=== PATIENT | male | born 1980 | race African-American/Black ===

== ENCOUNTER 2019-06-03 20:23 | Emergency (ER) | payer SELFPAY ==
[2019-06-03 21:05] LABS: Calcium 9.6 mg/dL (7.8-10.44); Chloride 110 mmol/L (98-107); Potassium 4.5 mmol/L (3.5-5.1); Sodium 139 mmol/L (136-145)
[2019-06-03 21:18] LABS: BUN (Urea Nitrogen) 12 mg/dL (8.9-20.6); Calc. Creatinine Clearance 0 mL/min (70-130); Carbon Dioxide 20 mmol/L (22-29); Estimated GFR-MDRD Greater than 90; Glucose 94 mg/dL (70-105)
[2019-06-03 21:27] LABS: Anion Gap 14 mmol/L (10-20)
--- NOTE | 2019-06-03 21:52 | CT ---
FACIAL BONE CT SCAN WITH IV CONTRAST: History: Left sided facial swelling and pain which has been intermittently going on for several weeks. FINDINGS: Post contrast CT examination of the face is performed. There is some sinus mucosal disease including the frontal, ethmoid, maxillary and sphenoid sinuses, evidence for chronic ibarra sinusitis. There is so me superficial subcutaneous fat stranding on the left side of the face and check with some associated swelling. There is some minimal thickening of the underlying fascia. There is some minimal fat stran ding deep to the fascia. Some of this fat stranding overlies the left parotid gland which is somewhat heterogeneous raising the possibility of left parotid gland sialadenitis. The left submaxillary glan d appears unremarkable. There are some scattered up to borderline sized bilateral jugular chain lymph nodes. No evidence for osseous abnormality. The deep parapharyngeal region appears normal. The deep retromandibular region is unremarkable. IMPRESSION: Some abnormal swelling and fat stranding involving the subcutaneous tissue as well as some thickening of the underlying fascia and some minimal edematous changes deep to the underlying fascia, and part overlying the region of the left parotid gland raising concern for associated parotid gland sialadeni tis or inflammation. No evidence for dilatation of Melani's duct. Chronic ibarra sinusitis with sinus m ucosal changes. No evidence for associated fracture or bony abnormality. POS: [facility]
== END 2019-06-03 21:47 | disposition home or self-care (01) ==
LOC: SCSER 20:23
DX: K11.20 Sialoadenitis, unspecified (principal)
CPT/HCPCS: 70487; 80048

== ENCOUNTER 2019-12-31 08:16 | Outpatient (CLI) | payer OTHER ==
--- NOTE | 2019-12-31 09:12 | RAD ---
EXAM: CHEST TWO VIEWS 12/31/2019 9:09 AM HISTORY: Hypertension COMPARISON: March 24, 2019 FINDINGS: Lungs: No acute airspace consolidation. Heart: There is stable mild cardiomegaly. Pulmonary Vessels: Normal. Costophrenic Angles: Clear. Pneumothorax: None. Osseous Structures: Intact. Additional Findings: None. IMPRESSION: Stable mild cardiomegaly. No acute abnormality demonstrated.
[2019-12-31 10:34] LABS: #Basophils 0.1 thou/uL (0.0-0.2); #Eosinphils 0.3 thou/uL (0.0-0.7); #Lymphocytes 2.5 thou/uL (1.20-3.40); #Monocytes 0.4 thou/uL (0.11-0.59); #Neutrophils 2.4 thou/uL (1.40-6.50); %Basophils 0.9 % (0.0-1.0); %Eosinophils 5.9 % (0.0-10.0); %Lymphocytes 44.4 % (21.0-51.0); %Monocytes 6.6 % (0.0-10.0); %Neutrophils 42.1 % (42.0-75.0); Hemoglobin 14.9 g/dL (14.0-18.0); Mean Corpuscular HGB CONC 31.8 g/dL (32.0-36.0); Mean Corpuscular Hemoglobin 25.6 pg (27.0-31.0); Mean Corpuscular Volume 80.4 fL (78.0-98.0); Mean Platelet Volume 8.3 fL (7.4-10.4); Platelet Count 314 thou/uL (130-400); RBC Distribution Width 13.7 % (11.5-14.5); White Blood Cell (WBC) Count 5.6 thou/uL (4.8-10.8)
[2019-12-31 11:01] LABS: ALT (SGPT) 21 U/L (8-55); AST (SGOT) 17 U/L (5-34); Albumin 4.6 g/dL (3.5-5.0); Alkaline Phosphatase 108 U/L (40-110); Anion Gap 12 mmol/L (10-20); BUN (Urea Nitrogen) 11 mg/dL (8.9-20.6); Bilirubin, Total 0.3 mg/dL (0.2-1.2); Calc. Creatinine Clearance 0 mL/min (70-130); Calcium 10.2 mg/dL (7.8-10.44); Carbon Dioxide 29 mmol/L (22-29); Cardiac Risk 3.6 (Less than 4.5); Chloride 105 mmol/L (98-107); Cholesterol 175 mg/dl (< 200 Desired); Estimated GFR-MDRD 89; Globulin 2.7 g/dL (2.4-3.5); Glucose 92 mg/dL (70-105); HDL Cholesterol 49 mg/dL (>60 Neg Risk); LDL Cholesterol, Calculated 115 mg/dL; Protein, Total 7.3 g/dL (6.0-8.3); Sodium 141 mmol/L (136-145); Triglycerides 54 mg/dL (Less than 150)
[2019-12-31 11:13] LABS: Free T4 (Free Thyroxine) 0.94 ng/dL (0.70-1.48); Thyroid Stimulating Hormone 1.144 uIU/mL (0.35-4.94)
[2019-12-31 11:48] LABS: Bilirubin Negative (Negative); Blood, Urine Negative (Negative); Clarity Clear (Clear); Glucose, Urine (Dipstick) Normal (Negative); Leukocyte Negative Leu/uL (Negative); Nitrite Negative (Negative); Protein, Urine (Dipstick) 20 mg/dL (Neg-Trace); Urobilinogen Normal mg/dL (Less than 2)
== END 2019-12-31 08:17 | disposition home or self-care (01) ==
LOC: SCSRAD 08:16
PROVIDERS: ATTEND Family Medicine
DX: R07.81 Pleurodynia (principal); I11.9 Hypertensive heart disease without heart failure
CPT/HCPCS: 36415; 71046; 80053; 80061; 81003; 83036; 84439; 84443; 85025